=== PATIENT | male | born 1950 | race Caucasian/White ===

== ENCOUNTER → 2022-12-12 | Outpatient (CLI) | payer OTHER ==
[2022-12-12 09:38] LABS: BASOPHILS % (AUTO) 0.9 % (0.0-5.0); EOSINOPHILS % (AUTO) 3.4 % (0.0-8.0); HEMATOCRIT 44.2 % (42-54); LYMPHOCYTES % (AUTO) 14.9 % (21.0-51.0); MEAN CORPUSCULAR HEMOGLOBIN 36.8 pg (27.0-33.0); MEAN CORPUSCULAR HGB CONC 34.4 g/dL (32.0-36.0); MONOCYTES % (AUTO) 13.7 % (3.0-13.0); NEUTROPHILS % (AUTO) 66.8 % (40.0-77.0); PLATELET COUNT (AUTO) 51 K/uL (130-400); RED BLOOD CELL COUNT(AUTO) 4.13 MIL/uL (4.50-6.20); RED CELL DISTRIBUTION WIDTH 14.2 % (11.0-15.5); WHITE BLOOD COUNT (AUTO) 3.3 K/uL (4.8-10.8)
[2022-12-12 09:41] LABS: HEMOGLOBIN A1C 4.4 % (4.0-6.0)
[2022-12-12 09:50] LABS: ALBUMIN 3.2 g/dL (3.5-5.0); CREATININE 0.9 mg/dL (0.5-1.5); MAGNESIUM 1.7 mg/dL (1.80-2.40); POTASSIUM 3.7 mmol/L (3.5-5.1); THYROID STIMULATING HORMONE 2.76 uIU/mL (0.36-3.74); TOTAL PROTEIN, SERUM 7.3 g/dL (6.0-8.3)
== END | disposition home or self-care (01) ==
LOC: LAB 08:39
PROVIDERS: ATTEND Student in an Organized Health Care Education/Training Program
DX: I10 Essential (primary) hypertension (principal); K74.60 Unspecified cirrhosis of liver; E78.5 Hyperlipidemia, unspecified; I25.10 Atherosclerotic heart disease of native coronary artery without angina pectoris; I45.2 Bifascicular block; I48.20 Chronic atrial fibrillation, unspecified; I77.9 Disorder of arteries and arterioles, unspecified; Z79.899 Other long term (current) drug therapy
CPT/HCPCS: 36415; 80053; 80061; 82330; 83036; 83735; 84443; 85025

== ENCOUNTER → 2023-04-05 | Outpatient (CLI) | payer OTHER | END | disposition home or self-care (01) | LOC: SHCH 08:45 → EDUNIT# 09:30 | PROVIDERS: ATTEND Student in an Organized Health Care Education/Training Program | DX: I65.23 Occlusion and stenosis of bilateral carotid arteries (principal); I25.10 Atherosclerotic heart disease of native coronary artery without angina pectoris; R09.89 Other specified symptoms and signs involving the circulatory and respiratory systems | CPT/HCPCS: 93880 ==

== ENCOUNTER → 2024-03-26 | Outpatient (CLI) | payer OTHER | END | disposition home or self-care (01) | LOC: RAH 13:26 | PROVIDERS: ATTEND Urology | DX: C61 Malignant neoplasm of prostate (principal); R97.20 Elevated prostate specific antigen [PSA]; M19.012 Primary osteoarthritis, left shoulder; M19.011 Primary osteoarthritis, right shoulder; M19.032 Primary osteoarthritis, left wrist; M19.031 Primary osteoarthritis, right wrist | CPT/HCPCS: 78306; A9503 ==

== ENCOUNTER 2025-04-01 06:40 | Day surgery (SDC) | payer OTHER ==
[2025-04-01] VITALS (10 sets, daily range): BP systolic 98–148; BP diastolic 51–87; PULSE 60–78; RESP 15–18; TEMP 97.3–97.8
[~2025-04-01] VITALS: Ht 177.8 cm; Wt 76.7 kg
[~2025-04-01 06:40] MED LIST: ASCO500T20 PO; CYAN250010 PO; DIGO125T71 PO; DILT60TA3 PO; FERR-72 PO; FOLI0.8T3 PO; FURO40TA5 PO; LACT10SO85 PO; PANT40TA54 PO; POTA-202 PO
[2025-04-01] MEDS ORDERED: VITAMIN B1 PO (07:49)
[2025-04-01] MEDS ORDERED: ASCO500C19 PO (07:49)
[2025-04-01] MEDS ORDERED: BENEFIBER PO (07:51)
[2025-04-01] MEDS: 0.9%NACL 1000ML 1,000 ML IV ONE (07:54)
[2025-04-01] MEDS ORDERED: LIDOCAINE PF 100MG/5ML (2%) SYRINGE 5ML ONE (08:16)
== END 2025-04-01 10:28 | disposition home or self-care (01) ==
LOC: ENDO 06:40 → DAH 06:40 → ENDO 10:28
PROVIDERS: ATTEND Surgery
DX: K92.1 Melena (principal); K62.7 Radiation proctitis; K62.89 Other specified diseases of anus and rectum; I10 Essential (primary) hypertension; I25.10 Atherosclerotic heart disease of native coronary artery without angina pectoris; I48.91 Unspecified atrial fibrillation; I25.2 Old myocardial infarction; K21.9 Gastro-esophageal reflux disease without esophagitis; Z85.46 Personal history of malignant neoplasm of prostate; Z86.0100 Personal history of colon polyps, unspecified; Z79.899 Other long term (current) drug therapy
CPT/HCPCS: 45346; J7030 ×2; J2003; J2704 ×4; A4620; A4215; A4223; A7002; A4222; A4221; A4663; A4606; 45334; J3490

== ENCOUNTER 2025-04-29 06:16 | Day surgery (SDC) | payer OTHER ==
[2025-04-29] VITALS (10 sets, daily range): BP systolic 92–164; BP diastolic 50–93; PULSE 68–96; RESP 14–18; TEMP 97–98.3
[~2025-04-29] VITALS: Ht 177.8 cm; Wt 77.1 kg
[~2025-04-29 06:16] MED LIST changes: +ASCO500C19 PO; -ASCO500T20 PO; -DILT60TA3 PO; +LACT-441 PO; -LACT10SO85 PO; +VITAMIN B1 PO
[2025-04-29] MEDS: 0.9%NACL 1000ML 1,000 ML IV ONE (07:16)
[2025-04-29] MEDS ORDERED: LIDOCAINE PF 100MG/5ML (2%) SYRINGE 5ML ONE (07:28)
[2025-04-29] MEDS ORDERED: GLYCOPYRROLATE 0.2 MG/ML 5 ML VIAL ONE (07:29)
[2025-04-29] MEDS ORDERED: SIMETHICONE 40 MG/0.6 ML ML ONE (08:20)
--- NOTE | 2025-04-29 09:43 | NUR ---
Full and complete discharge instructions given to Patient and Family both verbally and in writing. Explained GI procedure precautions and follow up. All questions answered. PIV removed with catheter tip intact. Family at bedside appearing supportive. W/C to POV with Family to home
== END 2025-04-29 09:46 | disposition home or self-care (01) ==
LOC: DAH 06:16
PROVIDERS: ATTEND Surgery
DX: K62.7 Radiation proctitis (principal); K62.89 Other specified diseases of anus and rectum; I48.91 Unspecified atrial fibrillation; K92.1 Melena; I10 Essential (primary) hypertension; K21.9 Gastro-esophageal reflux disease without esophagitis; Z86.0100 Personal history of colon polyps, unspecified; Z98.890 Other specified postprocedural states; Z79.899 Other long term (current) drug therapy
CPT/HCPCS: 45346; J7030; J2003; J2704; J3490; A4620; A4215